=== PATIENT | female | born 1975 | race Caucasian/White ===

== ENCOUNTER 2018-06-11 23:19 | Emergency (ER) | payer SELFPAY ==
[~2018-06-11] VITALS: Ht 157.5 cm; Wt 64.4 kg
[2018-06-11 23:45] VITALS: BP_SYST 127
[2018-06-12 01:37] VITALS: BP_SYST 122
== END 2018-06-12 01:36 | disposition home or self-care (01) ==
LOC: SED 23:19
DX: N39.0 Urinary tract infection, site not specified (principal); R03.0 Elevated blood-pressure reading, without diagnosis of hypertension
CPT/HCPCS: 81025; 99283